=== PATIENT | female | born 1975 | race Caucasian/White ===

== ENCOUNTER 2021-08-20 22:32 | Emergency (ER) | payer OTHER, SELFPAY ==
[2021-08-20 22:37] VITALS: BP 140/90; PULSE 64; O2SAT 99
[2021-08-20 22:39] VITALS: BP 129/84; PULSE 74; RESP 16; TEMP 36.8; O2SAT 96
--- NOTE | 2021-08-20 22:39 | ED.ABDPAIN ---
HPI - Abdominal Pain General Chief Complaint: Abdominal Pain Stated Complaint: abd pain Time Seen by Provider: 08/20/21 22:37 Source: patient Mode of arrival: ambulatory Limitations: no limitations History of Present Illness HPI narrative: 46 y/o female with history of poorly controlled diabetes 2 on metformin only, history of gastroparesis who is presenting to the ER with acute onset of epigastric abdominal pain along with nausea vomiting and diarrhea that started about 45 minutes prior to arrival. Patient's for symptom was diarrhea and she has had 3 to for her loose bowel movements after she ate her Thanksgiving tricky meal today. She then developed epigastric abdominal pain, central abdominal pain, nausea and 4 episodes of bilious and food content vomiting. She states her sugars have been running high. She has been compliant with all her medications, including her metformin. No one else at the Thanksgiving dinner has gotten ill. Her and her live in ER can her here visiting. MD elicited complaint: abdominal pain and other (Nausea, vomiting, diarrhea) Onset (ago): minute(s) Pain Consistency: constant Location: epigastric Severity: moderate Pain scale (0-10): 6 Quality: cramping Radiation: none Migration to: no migration Exacerbating factors: eating Relieving factors: vomiting Context: history of similar episodes Associated symptoms: nausea, vomiting and diarrhea Related Data Previous Rx's Medication Instructions Recorded metoclopramide HCl 10 mg tablet 10 mg PO Q6H PRN #10 tab 08/21/21 (Reglan) Allergies Allergy/AdvReac Type Severity Reaction Status Date / Time No Known Allergies Allergy Verified 08/20/21 22:51 Review of Systems Review of Systems Constitutional: No Fever, No Chills ENT/Mouth: No sore throat, No Rhinorrhea, No Swallowing Difficulty Cardiovascular: No Chest Pain, No SOB, No Orthopnea, No Edema Respiratory: No Cough, No Sputum, No Wheezing, No dyspnea Gastrointestinal: + Nausea, +Vomiting, + Diarrhea, + abdominal Pain, No Hematochezia, No Melena Genitourinary: No Dysuria, No Urinary Frequency, No Hematuria Musculoskeletal: No joint pain, No Myalgias Skin: No Skin Lesions, No rash Neuro: No Weakness, No Numbness, No Dizziness, No Headache Psych: + Anxiety/Panic, No Depression Heme/Lymph: No Bruising, No Lymphadenopathy Endocrine: No Polyuria, No Polydipsia Physical Exam Vital Signs: Vital Signs: Last Vital Signs Temp 98.4 F 08/21/21 00:45 Pulse 89 08/21/21 00:45 Resp 14 08/21/21 00:45 BP 121/81 08/21/21 00:45 Pulse Ox 96 08/21/21 00:45 Body Mass Index 32.1 Appearance: Alert. Oriented X3. Dry heaving, sitting on the edge of the stretcher. Eyes: Pupils equal, round and reactive to light. ENT: Pharynx normal. Neck: Normal inspection. Neck supple. CVS: Normal heart rate and rhythm. Pulses normal. Respiratory: No respiratory distress. Breath sounds normal. Abdomen: Softly distended with epigastric area tenderness, no rebound or guarding, +BS x4 Skin: Skin warm and dry. Normal skin color. Normal skin turgor. No rashes. Extremities: No lower extremity edema. Neuro: Oriented X 3. No motor deficit. No sensory deficit. Course Course Course Narrative: 46-year-old female with history of diabetes and gastroparesis presents to the ER with acute onset of epigastric abdominal pain, nausea, vomiting, diarrhea shortly after eating her Thanksgiving dinner. Her glucose is 430 on arrival. She is actively vomiting in the room. Concern for possible gastroenteritis. Doubt obstruction. Will check lab workup give IV fluids and insulin. Doubt DKA Reevaluation(s) Reevaluation #1: No anion gap with normal bicarb. She has a elevated white blood cell count of 13.4 with H&H of 16/48, mostly consistent with dehydration and hemoconcentration. IV fluids infusing, symptoms improved with Reglan. U tox is negative. UA has no evidence of infection. Patient sleeping comfortably and feels much better. Reevaluation #2: glucose 274. no further vomiting. stable for d/c home. MDM - Abdominal Pain Lab Data Result diagrams: 08/20/21 23:02 08/20/21 23:02 Labs: Lab Results 08/20/21 08/20/21 08/20/21 Range/Units 23:02 23:02 23:02 WBC 13.4 H (4.8-10.8) X10*3/uL RBC 5.66 H (4.20-5.50) X10*6/uL Hgb 16.8 H (12.0-16.0) g/dl Hct 48.3 H (37.0-47.0) % MCV 85.3 (80.0-98.0) fL MCH 29.7 (27.0-33.0) pg MCHC 34.8 (31.0-35.0) g/dl RDW 12.5 (11.0-16.0) % Plt Count 251 (160-400) X10*3/uL MPV 10.4 (9.4-12.3) fL Immature Gran % (Auto) 0.7 H (0.0-0.4) % Neut % (Auto) 54.9 (45-73) % Lymph % (Auto) 36.0 (20-40) % [place] % (Auto) 6.7 (2-11) % Eos % (Auto) 1.3 (0-4) % Baso % (Auto) 0.4 (0-2) % Lymph # (Auto) 4.8 (1.2-4.9) X10*3/uL [place] # (Auto) 0.9 (0.1-1.2) X10*3/uL Eos # (Auto) 0.2 (0.0-0.4) X10*3/uL Baso # (Auto) 0.1 (0.0-0.2) X10*3/uL Abs Immat Gran (auto) 0.10 H (0.00-0.03) X10*3/uL Absolute Neuts (auto) 7.4 (2.0-8.3) x10*3/uL Absolute Nucleated RBC 0.000 (0.0-0.012) X10*3/uL Nucleated RBC % (auto) 0.0 (0.0-0.2) /100WBC Sodium 138 (135-145) mmol/L Potassium 3.4 (3.3-5.1) mmol/L Chloride 99 (96-108) mmol/L Carbon Dioxide 24 (22-29) mmol/L Anion Gap 18 (12-20) BUN 6 L (9-16) mg/dL Creatinine 0.83 (0.5-1.4) mg/dL Estim Creat Clear Calc 66.2 Estimated GFR > 60 POC Glucose (60-115) mg/dL Random Glucose 434 H* (60-115) mg/dL Calcium 10.0 (8.4-10.2) mg/dL Magnesium 1.5 L (1.6-2.6) mg/dL Total Bilirubin 0.4 (0.0-1.0) mg/dL Direct Bilirubin 0.2 (0.0-0.5) mg/dL AST 24 (5-31) U/L ALT 49 H (0-31) U/L Alkaline Phosphatase 177 H (39-117) U/L Total Protein 7.1 (6.5-8.0) g/dL Albumin 4.3 (3.5-5.0) g/dL Lipase 27 (8-78) U/L Urine Color YELLOW Urine Appearance CLEAR Urine pH 6.0 (5.0-8.0) Ur Specific [place] 1.015 (1.005-1.025) Urine Protein 1+ H (NEG-TRACE) MG/DL Urine Glucose (UA) >=1000 H (NEG) MG/DL Urine Ketones 5 (NEG) MG/DL Urine Blood NEG (NEG) Urine Nitrite NEG (NEG) Ur Leukocyte Esterase NEG (NEG) Urine RBC 1-4 (0) /HPF Urine WBC 1-4 (0-4) /HPF Ur Squamous Epith Cells 1+ /LPF Urine Bacteria 1+ /LPF Urine Opiates Screen (Not Detect) Urine Fentanyl Screen (Not Detect) Ur Barbiturates Screen (Not Detect) Ur Phencyclidine Scrn (Not Detect) Ur Amphetamines Screen (Not Detect) U Benzodiazepines Scrn (Not Detect) Urine Cocaine Screen (Not Detect) U Marijuana (THC) Screen (Not Detect) 08/20/21 08/20/21 Range/Units 23:02 23:13 WBC (4.8-10.8) X10*3/uL RBC (4.20-5.50) X10*6/uL Hgb (12.0-16.0) g/dl Hct (37.0-47.0) % MCV (80.0-98.0) fL MCH (27.0-33.0) pg MCHC (31.0-35.0) g/dl RDW (11.0-16.0) % Plt Count (160-400) X10*3/uL MPV (9.4-12.3) fL Immature Gran % (Auto) (0.0-0.4) % Neut % (Auto) (45-73) % Lymph % (Auto) (20-40) % [place] % (Auto) (2-11) % Eos % (Auto) (0-4) % Baso % (Auto) (0-2) % Lymph # (Auto) (1.2-4.9) X10*3/uL [place] # (Auto) (0.1-1.2) X10*3/uL Eos # (Auto) (0.0-0.4) X10*3/uL Baso # (Auto) (0.0-0.2) X10*3/uL Abs Immat Gran (auto) (0.00-0.03) X10*3/uL Absolute Neuts (auto) (2.0-8.3) x10*3/uL Absolute Nucleated RBC (0.0-0.012) X10*3/uL Nucleated RBC % (auto) (0.0-0.2) /100WBC Sodium (135-145) mmol/L Potassium (3.3-5.1) mmol/L Chloride (96-108) mmol/L Carbon Dioxide (22-29) mmol/L Anion Gap (12-20) BUN (9-16) mg/dL Creatinine (0.5-1.4) mg/dL Estim Creat Clear Calc Estimated GFR POC Glucose 424 H* (60-115) mg/dL Random Glucose (60-115) mg/dL Calcium (8.4-10.2) mg/dL Magnesium (1.6-2.6) mg/dL Total Bilirubin (0.0-1.0) mg/dL Direct Bilirubin (0.0-0.5) mg/dL AST (5-31) U/L ALT (0-31) U/L Alkaline Phosphatase (39-117) U/L Total Protein (6.5-8.0) g/dL Albumin (3.5-5.0) g/dL Lipase (8-78) U/L Urine Color Urine Appearance Urine pH (5.0-8.0) Ur Specific [place] (1.005-1.025) Urine Protein (NEG-TRACE) MG/DL Urine Glucose (UA) (NEG) MG/DL Urine Ketones (NEG) MG/DL Urine Blood (NEG) Urine Nitrite (NEG) Ur Leukocyte Esterase (NEG) Urine RBC (0) /HPF Urine WBC (0-4) /HPF Ur Squamous Epith Cells /LPF Urine Bacteria /LPF Urine Opiates Screen Not Detected (Not Detect) Urine Fentanyl Screen Not Detected (Not Detect) Ur Barbiturates Screen Not Detected (Not Detect) Ur Phencyclidine Scrn Not Detected (Not Detect) Ur Amphetamines Screen Not Detected (Not Detect) U Benzodiazepines Scrn Not Detected (Not Detect) Urine Cocaine Screen Not Detected (Not Detect) U Marijuana (THC) Screen Not Detected (Not Detect) Discharge Plan Discharge Clinical Impression: Gastroenteritis, Hyperglycemia Patient Disposition: Home, Self-Care Instructions: Gastroenteritis (ED), Diabetic Hyperglycemia (ED) Additional Instructions: You most likely have a GI bug, this is most likely self-limited and usually self resolves within 24 hours. Stick to a bland diet while you are not feeling well. Avoid dairy. Recommend [id number] Pepto-Bismol and/or Imodium as needed for upset stomach and diarrhea. Take the prescribed Reglan as needed for nausea and vomiting. This will help with gastroparesis as well. Your glucose was over 400 while on the ER today, recommend following up with your primary care doctor early next week for further evaluation and management. If you develop new or worsening symptoms call 911 or come back to the ER for further evaluation. Prescriptions: New metoclopramide HCl [Reglan] 10 mg tablet 10 mg PO Q6H PRN (Reason: nausea and vomiting) Qty: 10 RF: 0 PMFSH Past Medical History Medical History (Updated 08/21/21 @ 00:48 by CURTIS Umana) Diabetes Surgical History (Updated 08/20/21 @ 22:47 by Barbara Lorenzo) No history of previous surgery Social History Social History Alcohol intake: unknown Patient Tobacco Use Status: Current everyday Tobacco user Use of substances other than those prescribed or required for medical reasons: Unknown Advance Directives: No Advance Directives Information Provided: Yes Patient : No
[2021-08-20 22:42] VITALS: BP 129/84; PULSE 74; RESP 15; TEMP 36.9; O2SAT 96; BMI 32.1
[2021-08-20] MEDS: PHENobarb/Hyoscy/Atropine/Scop 10 ML ELIXIR PO (23:04)
[2021-08-20] MEDS: Magnesium Hydrox/Alum Hydrox 30 ML ORAL.SUSP PO (23:04)
[2021-08-20] MEDS: Lidocaine HCl Viscous 2 % 15 ML SOLUTION MUCOUS MEM (23:04)
[2021-08-20 23:09] LABS: MANUAL DIFF FLAG NO
--- NOTE | 2021-08-20 23:09 | PC.NURSE ---
Patient medicated per emar. Patient vomited a large amount of brown fluid and undigested food.
[2021-08-20 23:10] LABS: Basophils Absolute Auto 0.1 X10*3/uL (0.0-0.2); Basophils Percent Auto 0.4 % (0-2); Eosinophils Absolute Auto 0.2 X10*3/uL (0.0-0.4); Eosinophils Percent Auto 1.3 % (0-4); Hematocrit 48.3 % (37.0-47.0); Hemoglobin 16.8 g/dl (12.0-16.0); Imm Gran Pct Auto 0.7 % (0.0-0.4); Lymphocytes Absolute Auto 4.8 X10*3/uL (1.2-4.9); Mean Corpuscular HGB Conc 34.8 g/dl (31.0-35.0); Mean Corpuscular Hemoglobin 29.7 pg (27.0-33.0); Mean Corpuscular Volume 85.3 fL (80.0-98.0); Mean Platelet Volume 10.4 fL (9.4-12.3); Monocytes Absolute Auto 0.9 X10*3/uL (0.1-1.2); Monocytes Percent Auto 6.7 % (2-11); Neutrophils Absolute Auto 7.4 x10*3/uL (2.0-8.3); Neutrophils Percent Auto 54.9 % (45-73); Platelet Count 251 X10*3/uL (160-400); Red Blood Count 5.66 X10*6/uL (4.20-5.50); Red Cell Distribution Width 12.5 % (11.0-16.0); White Blood Count 13.4 X10*3/uL (4.8-10.8)
[2021-08-20 23:17] LABS: Glucose, Whole Blood 424 mg/dL (60-115)
[2021-08-20 23:20] LABS: Appearance Urine CLEAR; Color Urine YELLOW; Glucose Urine UA >=1000 MG/DL (NEG); Leukocyte Esterase Urine NEG (NEG); Nitrite Urine NEG (NEG); Specific Gravity - Urine 1.015 (1.005-1.025); Urine Blood NEG (NEG); Urine Ketones 5 MG/DL (NEG); Urine Protein 1+ MG/DL (NEG-TRACE)
[2021-08-20 23:23] LABS: Amphetamine Screen Urine Not Detected (Not Detect); Barbiturates, Urine Not Detected (Not Detect); Benzodiazepines Screen Urine Not Detected (Not Detect); Cannabinoid Screen Urine Not Detected (Not Detect); Cocaine Screen Urine Not Detected (Not Detect); Fentanyl, urine Not Detected (Not Detect); Opiate Screen Urine Not Detected (Not Detect); Phencyclidine Screen Urine Not Detected (Not Detect)
[2021-08-20] MEDS: Insulin Lispro 100 UNIT/ML 3 ML VIAL 15 UNIT SUBCUT (23:26)
[2021-08-20] MEDS: Metoclopramide HCl 10 MG/2 ML VIAL IVPUSH (23:26)
[2021-08-20] MEDS: 0.9 % Sodium Chloride 1,000 ML 999 ML IVCONT (23:27)
[2021-08-20 23:44] LABS: Bacteria Urine 1+ /LPF; Squamous Epithelial Cell Urine 1+ /LPF
[2021-08-20 23:47] LABS: Alanine Aminotransferase 49 U/L (0-31); Albumin Level 4.3 g/dL (3.5-5.0); Alkaline Phosphatase 177 U/L (39-117); Anion Gap 18 (12-20); Aspartate Amino Transferase 24 U/L (5-31); Bilirubin Direct 0.2 mg/dL (0.0-0.5); Bilirubin Total 0.4 mg/dL (0.0-1.0); Blood Urea Nitrogen 6 mg/dL (9-16); Carbon Dioxide 24 mmol/L (22-29); Chloride 99 mmol/L (96-108); Creatinine Clr Calc Pharmacy 66.2; Estimated Glomerular Filt Rate > 60; Glucose Random 434 mg/dL (60-115); Lipase 27 U/L (8-78); Magnesium 1.5 mg/dL (1.6-2.6); Potassium 3.4 mmol/L (3.3-5.1); Sodium 138 mmol/L (135-145); Total Protein 7.1 g/dL (6.5-8.0)
[2021-08-21] MEDS: 0.9 % Sodium Chloride 1,000 ML 999 ML IVCONT (00:44)
[2021-08-21 00:45] VITALS: BP 121/81; PULSE 89; RESP 14; TEMP 36.9; O2SAT 96
[2021-08-21 01:31] LABS: Glucose, Whole Blood 274 mg/dL (60-115)
== END 2021-08-21 01:39 | disposition home or self-care (01) ==
PROVIDERS: Physician Assistant; Emergency Provider Internal Medicine
DX: K52.9 Noninfective gastroenteritis and colitis, unspecified (principal); E11.65 Type 2 diabetes mellitus with hyperglycemia; R10.13 Epigastric pain; F17.200 Nicotine dependence, unspecified, uncomplicated
CPT/HCPCS: 36415; 80048; 80076; 80307; 81001; 82947; 83690; 83735; 85025; 96361; 96374; 99284; 99285; J2765